=== PATIENT | male | born 1970 | race Caucasian/White ===

== ENCOUNTER 2019-05-15 10:12 | Inpatient (IN) ==
--- NOTE | 2019-05-15 10:45 | EKG Report ---
Test Performed on : 05/15/2019 10:24:33 AM Test Reason : chest pain Blood Pressure : / mmHG Vent. Rate : 075 BPM Atrial Rate : 075 BPM P-R Int : 152 ms QRS Dur : 076 ms QT Int : 362 ms P-R-T Axes : 043 058 056 degrees QTc Int : 404 ms Normal sinus rhythm. Cannot rule out Anterior infarct , age undetermined Abnormal ECG When compared with ECG of 03-DEC-2018 14:13, No significant change was found Unconfirmed Result
[2019-05-15 10:47] LABS: BASO# 0.08 X1000 (0.0-0.2); BASO% 0.9 % (0.0-0.8); EOS# 0.37 X1000 (0.0-0.7); EOS% 4.2 % (0.0-10.0); HEMOGLOBIN 14.5 g/dL (14.0-18.0); LYMPH% 30.3 % (20.5-51.1); MCH 31.5 PG (27-31); MCHC 34.5 g/dL (33-37); MCV 91.1 FL (81-99); MONO# 1.06 X1000 (0.11-0.59); MONO% 11.9 % (1.7-9.3); MPV 10.5 FL (7.4-10.4); NEUT% 52.7 % (42.2-75.2); PLT 250 X1000 (130-400); RBC 4.61 XMIL (4.7-6.1); RDW 12.7 % (11.5-14.5); WBC 8.91 X1000 (4.8-10.8)
--- NOTE | 2019-05-15 10:47 | Diag Imaging Result Doc PS360 ---
CHEST-2 VIEWS - 05/15/2019 INDICATION: chest pain COMPARISON: 12/03/2018 FINDINGS: The lungs are normally expanded and clear. Heart size and mediastinal contours are normal. No pneumothorax or pleural effusion. IMPRESSION: Negative exam. Electronically signed by Bhavesh Calderon 05/15/2019 10:44 AM
[2019-05-15 10:51] LABS: INR 0.85; PROTIME 11.7 Seconds (11.0-16.0); PTT 27.7 Seconds (22.3-41.8)
[2019-05-15 11:28] LABS: AGAP 11; ALB/GLOB RATIO 1.8; ALBUMIN 4.5 g/dL (3.5-5.0); ALKALINE PHOSPHATASE 102 U/L (32-122); BUN 13 mg/dL (8-22); CALCIUM 9.1 mg/dL (8.8-10.2); CHLORIDE 103 mmol/L (98-107); CK PROFILE 94 U/L (24-204); COSMO 282; CREATININE 0.8 mg/dL (0.7-1.2); ESTIMATED GFR > 60; GLUCOSE 114 mg/dL (70-104); GOT 20 U/L (10-34); GPT 24 U/L (10-44); POTASSIUM 4.5 mmol/L (3.5-5.1); SODIUM 141 mmol/L (136-145); TCO2 27 mmol/L (25-35)
[2019-05-15] MEDS ORDERED: NITROGLYCERIN TOP ONE (16:51)
[2019-05-15] MEDS ORDERED: MOTRIN PO PRN (18:41)
[2019-05-15] MEDS ORDERED: NICODERM PATCH TD ONE (18:45)
[2019-05-15] MEDS ORDERED: ZOFRAN IV PRN (18:49)
[2019-05-15] MEDS ORDERED: LABETALOL IV ONE (18:51)
[2019-05-15] MEDS: LOPRESSOR PO SCH (19:00)
--- NOTE | 2019-05-15 19:10 | HISTORY AND PHYSICAL ---
HISTORY OF PRESENT ILLNESS: Mr. Víctor Bauer states that for the last couple days he feels like he has had a little worse swelling especially in his right foot. He feels like he has had a little more chest pain and some shortness of breath and was concerned about it. He came into the emergency room. He has a history of having myocardial infarction, I believe in 2014, and they found he said 4 vessel or 4 lesions, 4-vessel disease. I think they put stents in 2 of them by his report. He has a history of hypertension. He does not really follow up with his doctor. I am not sure if he is taking his medication. He is on Suboxone. He is been without alcohol or drugs for 120 days. Robert was there with him. So, in December of 2014, he had a myocardial infarction with subsequent stent placement in [place]. He did return on 06/03/2015 with concerns about recurrent chest pain. 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 ALLERGIES: No known drug allergies. FAMILY HISTORY: Notable for heart disease and diabetes in first-degree relatives. SOCIAL HISTORY: Smokes 1-1/2 pack cigarettes. He has quit alcohol. ALLERGIES: Ketoralac or Toradol. He breaks out in welts. That is the only thing that he knows of. REVIEW OF SYSTEMS: General: No weight gain or loss. No fever or chills. HEENT: Unremarkable. Respiratory: No increased work of breathing or dyspnea. Cardiovascular: No chest pain or tachy palpitation. Vital signs: He is afebrile. PHYSICAL EXAMINATION: GENERAL: Awake, alert, oriented x3. VITAL SIGNS: Temp 97.9 degrees, pulse 80, respirations 15, blood pressure 152/85. HEENT: Pupils are equal and round. Oral and nasal mucosa unremarkable. No lesions. Conjunctivae pink. Sclerae clear. LUNGS: Are clear in all lung savage anterior and posterior. CARDIOVASCULAR: Regular rhythm and rate without murmur or S3. Weight 270 pounds. Height 6 feet. NECK: Supple. No distended neck veins. CVP less than 6 cm in the right atrium. No thyromegaly. No adenopathy. ABDOMEN: Soft. SKIN: Warm and dry. No chest wall discomfort elicited. His skin without rashes. He has a large callus in the center of his right hand. LABORATORY DATA: White count is 8910, hematocrit is 42, platelet count 250,000. Sodium 141, potassium 4.5, chloride 103, BUN 13, creatinine 0.8, blood sugars 114. AST is 20, ALT is 24, alkaline phosphatase is 102. ProTime is 11.7, INR is 0.85, PTT is 27. His chest x-ray is negative. No sign of infiltrate. Mediastinum unremarkable. I have to look at his EKG. ASSESSMENT AND PLAN: 1. Chest pain in someone who has had a history of coronary artery disease. It does not sound classic or typical for angina, but I think we are going to have to evaluate. He came in in 2016 and at that time they did a heart catheterization and the summary was he had mild-to- moderate coronary artery disease involving the diagonal branch of the left anterior descending, also the mid section of the left anterior descending at the junction of the mid with the apical portion in order about 50 to 60 percent. 2. Patent stent to the right coronary artery. 3. Mild diffuse disease in the right coronary artery proper and within the diagonal branch of the left anterior descending. 4. Normal left ventricular systolic function. 5. Normal left ventricular end-diastolic pressure. No mitral regurgitation. PLAN: 1. So, we will ask Cardiology to evaluate. We are going to check serial cardiac enzymes, troponin and CK. We will check serial electrocardiograms. 2. Blood pressure running high. His afterload is pretty high and so at home, I do not think he is taking his medicines, but he is just taking Suboxone, so we are going to put him on lisinopril 10 mg twice a day and I think we will also put him on Lopressor 25 mg p.o. q.8. We will keep him on his Suboxone while he is here. He gets an 8-2 tablet and he takes it by mouth 3 times a day. We better check his T4, TSH, B12, and folate. We will check a venous Doppler of his right leg that is where his concern is with the swelling. cc: Matthew Castillo MD
[2019-05-15 19:54] LABS: FREE T4 0.99 ng/dL (0.93-1.70)
[2019-05-15] MEDS ORDERED: ATARAX PO SCH (21:00)
[2019-05-15] MEDS: ASPIRIN PO ONE ×2 (21:37→22:50)
[2019-05-15] MEDS ORDERED: ASPIRIN ONE (21:41)
[2019-05-15] MEDS: MELATONIN PO SCH (22:01)
[2019-05-15] MEDS: PRINIVIL PO SCH (22:01)
[2019-05-15] MEDS: SUBOXONE 8 MG/2 MG SL SCH (22:02)
[2019-05-15] MEDS: LOVENOX SUBQ SCH (22:03)
[2019-05-15] MEDS: ATARAX PO SCH (22:13)
[2019-05-15] MEDS ORDERED: ASPIRIN PO ONE (22:45)
[2019-05-16] MEDS: LOPRESSOR PO SCH ×3 (02:31→17:40)
[2019-05-16 05:23] LABS: HEMATOCRIT 40.4 % (42.0-52.0); HEMOGLOBIN 13.8 g/dL (14.0-18.0); MCH 31.3 PG (27-31); MCHC 34.2 g/dL (33-37); MCV 91.6 FL (81-99); MPV 10.5 FL (7.4-10.4); RBC 4.41 XMIL (4.7-6.1); RDW 12.7 % (11.5-14.5); WBC 6.85 X1000 (4.8-10.8)
[2019-05-16 05:45] LABS: AGAP 9; BUN 14 mg/dL (8-22); CALCIUM 8.7 mg/dL (8.8-10.2); CHLORIDE 102 mmol/L (98-107); COSMO 278; CREATININE 0.8 mg/dL (0.7-1.2); ESTIMATED GFR > 60; GLUCOSE 124 mg/dL (70-104); SODIUM 138 mmol/L (136-145); TCO2 27 mmol/L (25-35)
[2019-05-16] MEDS: SUBOXONE 8 MG/2 MG SL SCH ×2 (08:58→21:59)
[2019-05-16] MEDS: NICODERM PATCH TD SCH (08:58)
[2019-05-16] MEDS: PRINIVIL PO SCH ×2 (08:59→21:55)
--- NOTE | 2019-05-16 11:09 | PROGRESS NOTE ---
DATE: 05/16/2019 SUBJECTIVE: Patient reports no chest pain but complaining of shortness of breath. Denies any other complaints. OBJECTIVE: Vital Signs: Temperature 97.7 degrees, heart rate 68, respiratory rate 17, blood pressure 117/57, O2 saturation 100% on room air. General: This is 48-year-old male, lying in bed, in no acute distress. Cardiovascular: S1, S2 heard. No murmurs, gallops, or rubs. Regular rate and rhythm. Respiratory: Wheezing all over both pulmonary bases. Patient not using any accessory muscles or having work of breathing. Abdomen: Soft, nontender to palpation. Bowel sounds present. No organomegaly. Extremities: No clubbing, cyanosis, or edema. Peripheral pulses present in both legs. Neurological: Patient alert, oriented x3. Moves 4 extremities. LABORATORY DATA: We have checked troponins 3 times those are negative. ASSESSMENT AND PLAN: 1. Chest pain. The patient with coronary artery disease with 2 stents placed. The patient has history of myocardial infarction in 2015. He has a history apparently of 4 vessel disease but because of lack of insurance, he has not had any more followup. So at this point, even though we have negative troponins we are going to do Lexiscan and echocardiogram. We have called cardiology for consult. We will see what they think. 2. Chronic obstructive pulmonary disease exacerbation. The patient continues to smoke. Patient advised to quit smoking. We will provide DuoNeb every 4 hours as scheduled. 3. Hypertension. Blood pressure is under control with the same management. DISPOSITION: Following lead from Cardiology. cc: Skip Thacker MD MTDD
[2019-05-16] MEDS: DUONEB (A & A) INH SCH ×4 (11:21→23:43)
[2019-05-16] MEDS ORDERED: LEXISCAN ONE (12:43)
--- NOTE | 2019-05-16 15:09 | CARDIOLOGY CONSULTATION ---
DATE: 05/16/2019 CHIEF COMPLAINT ON PRESENTATION: Chest pain, edema. HISTORY OF PRESENT ILLNESS: Mr. Bauer is a 48-year-old male with a history of coronary disease who has not been compliant with medications, he continues to smoke. Over the last month he has had stabbing-type chest pains in the midchest area that occur every couple days or so, last for a few seconds. There does not appear to be any reliable component with exertion. He reports continued edema developing over that time. Denies any orthopnea. 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 PAST MEDICAL HISTORY: 1. Significant for coronary disease. His last cardiac catheterization was performed in May 2015. At that time he had a normal left main. The LAD had diffuse proximal 40 to 50 percent disease as well as 50 to 60 percent distal disease. Circumflex appears relatively normal. The right coronary is dominant, diffuse disease on the order of 30% in the proximal vessel. Patent stent in the right coronary, ejection fraction on that study was 60%. 2. Hypertension. 3. Hyperlipidemia. 4. Noncompliance with medications. 5. Polysubstance abuse. SOCIAL HISTORY: He has a history of what sounds like opioid use in the past as well as heavy alcohol. He reports not using any of those and maintained Suboxone usage. He continues to smoke 1-1/2 packs per day. He is . FAMILY HISTORY: Significant for hypertension. REVIEW OF SYSTEMS: A 10 system review of systems is negative except for those things mentioned in HPI. PHYSICAL EXAMINATION: He is afebrile. His heart rate is 59, his blood pressure is 117/57.General: He is in no acute distress. HEENT: Oropharynx is moist. Normal dentition. Eye examination shows pink conjunctivae, white sclerae. Neck: Shows no obvious thyromegaly or thyroid tenderness. Cardiovascular: He sounds to be in a regular rate and rhythm. He has no obvious murmurs. He has no S3. He has no lower extremity edema. Chest: Has mild end- expiratory wheezes somewhat diffusely. He has no increased work of breathing. Abdomen: Soft, nontender, nondistended. He has no obvious organomegaly. Skin: Warm and dry throughout without any rashes. Neurological: Moving all extremities well. He has no lateralizing deficits. Psychiatric: He is alert, oriented, pleasant. He has normal mood and affect. PERTINENT DATA: His chest x-ray was unremarkable. His EKG shows sinus rhythm with no ischemic changes. His lab data shows a white count of 6.8, hematocrit 40, platelet count is 226,000. His sodium is 138, potassium 4, BUN 14, creatinine 0.8. His cardiac enzymes have been negative times multiple sets. ASSESSMENT: Mr. Bauer is a 48-year-old gentleman who presents with atypical chest pain and edema. PLAN: At this point his antihypertensives and antihyperlipidemics have been reinitiated. We will follow up on the results of the stress. If this is unremarkable, I believe he can likely be discharged home. cc: Adeel Fuentes MD
[2019-05-16] MEDS ORDERED: SUBOXONE 8 MG/2 MG SL ONE (15:53)
--- NOTE | 2019-05-16 17:29 | ECHO REPORT ---
ORDER DATE: 05/16/2019 MEASUREMENTS: Septal thickness 1.3, left ventricular internal diameter end-diastole 4.8, left ventricular internal diameter end-systole 3.3, posterior wall thickness 1.3, aortic root 2.7, left atrium 4.3. SUMMARY: 1. Technically difficult study due to limited acoustic window quality. 2. Aortic valve without evidence of structural abnormality and opens adequately on 2-dimensional images. The peak gradient across aortic valve is less than 10 mmHg. Mitral and tricuspid valves are without evidence of structural abnormality while pulmonic valve is not well demonstrated. The aortic root is normal in size. 3. Normal left ventricular chamber size with mild concentric left hypertrophy is demonstrated. The estimated left ventricular ejection fraction appears to be at least 60%. No regional wall motion abnormalities evident. Left atrium is mildly enlarged. The right atrium and right ventricle are normal size with grossly preserved right ventricular systolic function. 4. No pericardial effusion. 5. Appearance of inferior vena cava suggests normal central venous pressure. CONCLUSIONS: 1. Technically difficult study. 2. No significant valvular abnormality evident. 3. Mild concentric left hypertrophy with normal left ventricular ejection fraction. 4. Mild left atrial enlargement. cc: MD Lucero Zee CRNP
--- NOTE | 2019-05-16 17:37 | Diag Imaging Result Document ---
PROCEDURE NAME: MYOCARDIAL PERF SCAN, STR/REST - 05/16/2019 SUMMARY: The patient was administered 15.7 millicuries of technetium-99m sestamibi after which resting cardiac images were obtained. The patient was subsequently stressed using a walking Lexiscan protocol. The patient administered Lexiscan 0.4 mg intravenously after which the heart rate went from 62 beats per minute to 88 beats per minute and the blood pressure went from 139/73 to 122/65. With Lexiscan, the patient denied chest discomfort. Following the administration of Lexiscan, the patient was administered 46.2 mCi of technetium 99-m sestamibi after which gated stress cardiac images were obtained. Baseline ECG demonstrated normal sinus rhythm and abnormal precordial R-wave progression, cannot exclude previous anteroseptal infarct of undetermined age. With Lexiscan, there were no diagnostic ST-segment changes. SPECT images were reconstructed in the short, horizontal long, and vertical long axis. Review of these images demonstrated a medium to large-sized area of severely reduced activity in the inferior wall on stress images which partially improves but does not normalize on resting images. Gated images demonstrate a calculated left ejection fraction of 62% with symmetrical wall motion/thickening. CONCLUSIONS: 1. Adequate response to Lexiscan. 2. Clinically negative for chest pain. 3. Electrocardiographically, there were no diagnostic ST-segment changes on ECG following administration of Lexiscan. 4. Abnormal Lexiscan sestamibi images demonstrating partially reversible defect in the inferior wall suggesting inducible myocardial ischemia in the inferior wall. Normal left ventricular systolic function demonstrated. Clinical correlation recommended. cc: MD Skip Zee MD
[2019-05-16] MEDS: LOVENOX SUBQ SCH (19:12)
[2019-05-16] MEDS: ATARAX PO SCH (21:55)
[2019-05-16] MEDS: MELATONIN PO SCH (21:55)
[2019-05-16] MEDS: LIPITOR PO SCH (21:59)
[2019-05-17] MEDS: LOPRESSOR PO SCH ×4 (00:11→20:46)
[2019-05-17] MEDS: DUONEB (A & A) INH SCH ×6 (04:13→23:29)
[2019-05-17] MEDS ORDERED: LASIX IV SCH (09:00)
[2019-05-17] MEDS: NICODERM PATCH TD SCH (09:57)
[2019-05-17] MEDS: PRINIVIL PO SCH ×2 (09:57→20:46)
[2019-05-17] MEDS: ASPIRIN PO SCH (09:57)
[2019-05-17] MEDS: SUBOXONE 8 MG/2 MG SL SCH ×3 (09:58→18:46)
--- NOTE | 2019-05-17 10:48 | PROGRESS NOTE ---
DATE: 05/17/2019 SUBJECTIVE: The patient reports no more episodes of chest pain or shortness of breath. No other complaints noted, except bilateral lower extremity edema. OBJECTIVE: Vital Signs: Temperature 97.9 degrees, heart rate 66, respiratory rate 14, blood pressure 113/62, O2 saturation 98% on room air. General: This is a 48-year-old, male, lying in bed in no acute distress. Cardiovascular: S1, S2 heard. No murmurs, gallops, or rubs. Regular rate and rhythm. Respiratory: Minimal wheezing noted in both pulmonary bases. The patient is not using any accessory muscles or having work of breathing. Abdomen: Soft, nontender to palpation. Bowel sounds present. No organomegaly. Extremities: No clubbing, cyanosis, or edema. Peripheral pulses present in both legs. Neurological: The patient is alert and oriented x3. Moves all 4 extremities. LABORATORY DATA: Reviewed. ASSESSMENT AND PLAN: 1. Chest pain in a patient with coronary artery disease. Lexiscan stress reviewed by Cardiology. Recommendation from them, according to the results of the test, is to start medical therapy. Apparently since he had a myocardial infarction in 2014, he was not taking probably any medication because of lack of insurance. At this point, will plan to keep this patient in the hospital, with current medications recommended by Cardiology, and if he feels better, he will be discharged tomorrow with a followup with biostatistician in a month. 2. Chronic obstructive pulmonary disease exacerbation. The patient is an active smoker. He has been advised to quit smoking. Will continue with DuoNeb. Actually, physical examination disclosed less wheezing today. Will continue to monitor. 3. Hypertension. Blood pressure is under control. Will continue with the same management. 4. Disposition. Will continue to monitor this patient for today, and if tomorrow he is feeling better, will discharge him. cc: Skip Thacker MD
[2019-05-17] MEDS ORDERED: LASIX IV ONE (13:31)
[2019-05-17] MEDS: LOVENOX SUBQ SCH (18:42)
[2019-05-17] MEDS: LIPITOR PO SCH (20:46)
[2019-05-17] MEDS: ATARAX PO SCH (20:46)
[2019-05-17] MEDS: MELATONIN PO SCH (20:46)
--- NOTE | 2019-05-17 21:10 | CARDIOLOGY PROGRESS NOTE ---
DATE: 05/17/2019 SUBJECTIVE: Mr. Bauer has not had any more chest pain. His edema has improved. OBJECTIVE: Vital Signs: He is afebrile. Heart rate 70, blood pressure 139/70. His I's and O's are poorly tracked. He has a number of continent voids not measured. Cardiovascular: He is in a regular rate and rhythm. He has no obvious murmurs. He has trace bilateral lower extremity edema. Chest: Clear bilaterally. He has no increased work of breathing. Abdomen: Soft, nontender. PERTINENT DATA: His echo was reviewed. Nuclear scan results were reviewed. His BUN and creatinine are 14 and 0.8. ASSESSMENT: Mr. Bauer is a 48-year-old gentleman who presented with atypical chest pain. He has a history of myocardial infarction in the past. PLAN: His nuclear scan was reviewed and demonstrated a predominantly fixed defect in the inferior wall. There was some small amount of reversibility. He has markedly atypical symptoms with negative cardiac enzymes and an unremarkable EKG. His echocardiogram showed a preserved ejection fraction in the inferior wall. At this point, I would recommend reinstitution of his medical therapy in the form of KASSI inhibitors and beta-blockers. He was placed on high-intensity statin therapy as well as an aspirin. He was instructed to quit smoking as well as reduce his sodium intake. At this point, I would recommend continued medical therapy and followup as an outpatient. I will start him on Lasix 20 mg daily, which he can continue at home on a p.r.n. basis. His ejection fraction is normal. cc: Adeel Fuentes MD
[2019-05-18] MEDS: DUONEB (A & A) INH SCH ×3 (04:50→11:15)
[2019-05-18] MEDS ORDERED: LASIX PO SCH (09:00)
[2019-05-18] MEDS: NICODERM PATCH TD SCH (09:29)
[2019-05-18] MEDS: SUBOXONE 8 MG/2 MG SL SCH ×2 (09:29→12:45)
[2019-05-18] MEDS: LOPRESSOR PO SCH (09:29)
[2019-05-18] MEDS: PRINIVIL PO SCH (09:29)
[2019-05-18] MEDS: ASPIRIN PO SCH (09:29)
[2019-05-18 11:50] VITALS: BP 154/95
--- NOTE | 2019-05-19 02:28 | Extremity Venous Study ---
PROCEDURE NAME: Venous U/S Bilateral Legs - 05/15/2019 REFERRING PROVIDER: COTY Zafar INTERPRETING PHYSICIAN: Dr. Db Palacios. FARROWING MANAGER: Iain. INDICATION: The patient has edema in the legs. FINDINGS: Bilateral lower extremity venous images accomplished. The common femoral, superficial femoral, deep femoral, popliteal, posterior tibial, peroneal, and greater saphenous are imaged bilaterally. Doppler is used to evaluate the veins for spontaneity, phasicity, respiratory excursion, distal augmentation. All veins are compressible. No intraluminal clot is seen. INTERPRETATION: No evidence of deep or superficial venous thrombosis in either lower extremity veins identified. Reflux noted at the common femoral vein level bilaterally. cc: MD Lucero Kelly CRNP
--- NOTE | 2019-05-19 10:51 | DISCHARGE SUMMARY ---
ADMISSION DATE: 05/15/2019 DISCHARGE DATE: 05/18/2019 DISCHARGE DIAGNOSES: 1. Chest pain resolved. 2. Coronary artery disease with stents. 3. Tobacco abuse. 1. Chronic obstructive pulmonary disease exacerbation improved. 2. Hypertension. CONSULTATIONS: Dr. Adeel Fuentes from Cardiology. PROCEDURES: 1. Myocardial perfusion scan nuclear test showed abnormal Lexiscan sestamibi imaging demonstrating partial reversible defect in the inferior wall suggesting inducible myocardial ischemia in the inferior wall. Normal left ventricular systolic function demonstrated 2. Echocardiogram showed mild concentric left hypertrophy with normal left ventricular ejection fraction of at least 60%. Mild atrial enlargement. No significant valvular abnormality. HOSPITAL COURSE: In brief, this is a 48-year-old male, with past medical history of coronary artery disease with 4 vessel disease who came to the emergency department complaining of chest pain. He had in 2014 acute myocardial infarction and since then he has not had any medical follow-up. He was not taking any medication. Today, he decided to come to the emergency department because of some chest pain so workup, as we mentioned above. Ideally on this patient will be to proceed with left heart catheterization but considering that he has not had any medical therapy, after he was discharged from the hospital for acute MA, I think Cardiology decided to place him on medical treatment and see him in a month in the office. But if he persists with chest pain, he may need to have left heart catheterization. At this point, patient is much more stable. Regarding COPD, he has been placed on DuoNeb every 4 hours and he is improving since then. Blood pressure has been under control, so at this point, he is going to be discharged in stable condition. DISCHARGE PHYSICAL EXAMINATION: Vital Signs: Temperature 98.1 degrees, heart rate 70, respiratory rate 17, blood pressure 154/95. O2 saturation 98% on room air. General: This is a 48-year-old male, lying in bed, in no acute distress. Cardiovascular: S1, S2 heard. No murmurs, gallops, or rubs. Regular rate and rhythm. Respiratory: Clear bilaterally to auscultation. No work of breathing or using accessory muscles. Abdomen: Soft, nontender to palpation. Bowel sounds present. No organomegaly. Extremities: No clubbing, cyanosis, or edema. Peripheral pulses present in both legs. Neurological: The patient alert, oriented x3. Moves 4 extremities. DISCHARGE DISPOSITION: Home to self-care. LIST OF MEDICATIONS: 1. Melatonin 5 mg 1 tablet p.o. at bedtime. 2. Aspirin 81 mg 1 tablet p.o. daily. 3. Lasix 20 mg 1 tablet p.o. daily. 4. Metoprolol 25 mg p.o. twice daily. 5. Nicotine patch 21 mg subcutaneous daily. 6. Lipitor 40 mg 1 tablet p.o. daily. 7. Lisinopril 10 mg 1 tablet p.o. twice daily. 8. Suboxone 8 mg/2 mg 1 tablet p.o. 3 times per day. FOLLOW-UP INSTRUCTIONS: Follow up with Dr. Adeel Fuentes in the office in a month. cc: Skip Thacker MD MTDRj
--- NOTE | 2019-05-22 11:07 | PROVIDER DOCUMENTATION ---
This chart was entered by Arelis Javier Scribe, acting as scribe for Jorge L Solo MD. HPI-Chest Pain - General Chief Complaint: Chest Pain Stated Complaint: CP HEART PT Time Seen by Provider: 05/15/19 10:47 Source: patient Allergies/Adverse Reactions: Patient Allergies Allergy/AdvReac Type Severity Reaction Status Date / Time ketorolac tromethamine * Allergy RASH Verified 01/27/18 19:31 [From Toradol] Home Medications: Home Medication List Medication Instructions Recorded Confirmed Last Taken Type Buprenorphine/Naloxone S.l. 1 tab PO TID 05/15/19 05/15/19 Unknown History [Suboxone 8 mg/2 mg] ATORVAstatin [Lipitor] 40 mg PO QHS #90 tab 05/18/19 Unknown Rx Aspirin 81 mg PO DAILY #90 chewtab 05/18/19 Unknown Rx Furosemide [Lasix] 20 mg PO DAILY #90 tab 05/18/19 Unknown Rx LISINOpril [Prinivil] 10 mg PO BID #60 tab 05/18/19 Unknown Rx Melatonin 5 mg PO QHS tab 05/18/19 Unknown Rx Metoprolol [Lopressor] 25 mg PO BID #60 tab 05/18/19 Unknown Rx Nicotine Patch [Nicoderm Patch] 21 mg TD DAILY patch.[id number] 05/18/19 Unknown Rx - History of Present Illness-CP Nature of Presenting Problem: Patient is a 48 year old male who presents for chest pain. States having chest pain for 2 weeks. Reports pain has resolved currently. States pain is similar to prior DE. Does not report shortness of breath or nausea. Reports weight gain and increased swelling to bilateral lower extremities. Location: reports: substernal Chest Pain Radiation: reports: no radiation Quality of Pain: reports: other (pinching) Severity in ED: mild Onset/Duration: other (2 weeks) Timing: gone now Context/Activities at Onset: reports: light activity Prior Chest Pain/Cardiac Workup: reports: heart attack Similar Symptoms Previously?: Yes Recently Seen Here or By Another Healthcare Provider: No Review of Systems - Adult - REVIEW OF SYSTEMS - ADULT Constitutional: reports: see HPI, weight gain. denies: chills, fever Eyes: reports: no symptoms reported Ears, Nose, Mouth & Throat: reports: no symptoms reported Cardiovascular: reports: see HPI. denies: chest pain, palpitations, syncope Respiratory: reports: no symptoms reported. denies: cough, shortness of breath, wheezing Gastrointestinal: reports: no symptoms reported Genitourinary: reports: no symptoms reported Musculoskeletal: reports: no symptoms reported Integumentary: reports: no symptoms reported Neurological: reports: no symptoms reported Psychiatric: reports: no symptoms reported Endocrine: reports: no symptoms reported Hematologic/Lymphatic: reports: no symptoms reported Allergic/Immunologic: reports: no symptoms reported All Other Systems: Reviewed and Negative Past History - Adult - PAST MEDICAL HISTORY-ADULT Review of Records: reports: Old Records Reviewed, Nursing Assessment Review, Medications Reviewed, Social history reviewed & non-contributory. Major Childhood Illnesses: reports: denies history Cardiovascular: reports: HTN, hyperlipidemia, DE Respiratory: reports: COPD Gastrointestinal: reports: GERD Obstetrical/Gynecological: reports: denies history Genitourinary: reports: denies history Musculoskeletal: reports: denies history Neurological: reports: denies history Endocrine/Immune: reports: denies history Other Conditions: reports: denies history - PRIOR SURGERIES/PROCEDURES Surgical/Procedure History: reports: cardiac stent - IMMUNIZATION STATUS Childhood Immunizations: See Nurse Assessment Flu Vaccine: See Nurse Assessment - FAMILY HISTORY Family History: reviewed, not pertinent - SOCIAL HISTORY Smoking: cigarettes (former) Substance Use: denies Physical Exam-General - PHYSICAL EXAM-ADULT Initial Vital Signs Reviewed: Yes - CONSTITUTIONAL General Appearance: appears well, alert, no apparent distress - HEAD, EARS, NOSE, MOUTH & THROAT HENMT: moist mucous membranes - NECK Neck: full range of motion, normal inspection - RESPIRATORY Respiratory: chest non-tender, lungs clear, normal breath sounds - CARDIOVASCULAR Cardiovascular: regular rate, rhythm, no gallop, no murmur - GASTROINTESTINAL (ABDOMEN) Abdominal Exam: normal bowel sounds, non tender, soft - MUSCULOSKELETAL Extremity: non-tender, other (trace edema to bilateral lower extremities) - SKIN Integumentary: normal color, normal turgor, warm/dry - NEUROLOGIC Neurologic: grossly normal - PSYCHIATRIC Psych/Mental Status: normal mood/affect, oriented x 3 - HEART Score HEART Score: History: Moderately Suspicious HEART Score: ECG: Non-Specific Repolarization Disturbance/LBBB/PM HEART Score: Age: 45-65 Years HEART Score: Risk Factors for Atherosclerotic Disease: > or = 3 Risk Factors or History of Atherosclerotic Disease HEART Score: Troponin: < or = Normal Limit Total HEART Score:: 5 Progress - PLAN OF CARE/RESULTS Progress/Plan/Lab Results: Orders Category Date Time Status Admit - [facility] Routine AdmDCTranf 05/15/19 18:49 Active Activity - Up with Assistance ORDERED Care 05/15/19 18:49 Active Cardiac Monitoring DIRECTED Care 05/15/19 10:34 Completed Intake and Output-Strict ORDERED Care 05/15/19 18:49 Active Nursing- MD Consult Request ROUTINE Care 05/16/19 08:00 Completed Oxygen Therapy- ED Nursing DIRECTED Care 05/15/19 10:34 Completed Saline Loc NOW Care 05/15/19 10:34 Active Vital Signs Order Q 4-HR ASSESS Care 05/15/19 18:49 Active Z-Document. for Tele Applied ORDERED Care 05/15/19 18:51 Completed Physician/Provider Consults Routine Cons 05/16/19 08:00 Ordered Heart Healthy Diet Diet 05/15/19 18:50 Completed NPO Diet 05/16/19 00:01 Completed CHEST-2 VIEWS [RAD] Stat Exams 05/15/19 10:34 Completed BASIC METABOLIC PANEL [CHEM] Routine Lab 05/16/19 04:52 Completed CBC WITH ELECTRONIC DIFF [HEME] Stat Lab 05/15/19 10:30 Completed CBC WITH NO DIFF [HEME] Routine Lab 05/16/19 04:52 Completed CK PROFILE [SP CHEM] Stat Lab 05/15/19 10:30 Completed CK PROFILE [SP CHEM] Stat Lab 05/15/19 18:44 Completed COMPREHENSIVE METABOLIC PANEL [CHEM] Stat Lab 05/15/19 10:30 Completed FOLATE Routine Lab 05/15/19 18:44 Completed FREE T4 Routine Lab 05/15/19 18:44 Completed PRO B-NATRIURETIC PEPTIDE Stat Lab 05/15/19 10:30 Completed PROTIME WITH INR [COAG] Stat Lab 05/15/19 10:30 Completed PTT [COAG] Stat Lab 05/15/19 10:30 Completed TROPONIN T HIGH SENSITIVITY Stat Lab 05/15/19 10:30 Completed TROPONIN T HIGH SENSITIVITY Stat Lab 05/15/19 13:28 Completed TROPONIN T HIGH SENSITIVITY Stat Lab 05/15/19 18:44 Completed TSH Routine Lab 05/16/19 04:52 Completed VITAMIN B12 Routine Lab 05/15/19 18:44 Completed Aspirin Med 05/15/19 11:16 Discontinued 325 mg PO NOW ONE Buprenorphine/Naloxone S.l. [Suboxone 8 mg/2 mg] Med 05/15/19 21:00 Disconti nued 1 each SL BID Enoxaparin [Lovenox] Med 05/15/19 19:00 Discontinued 40 mg SUBQ Q24H Hydroxyzine [Atarax] Med 05/15/19 21:00 Discontinued 50 mg PO HS Ibuprofen [Motrin] Med 05/15/19 18:41 Discontinued 600 mg PO Q6H PRN PRN LISINOpril [Prinivil] Med 05/15/19 21:00 Discontinued 10 mg PO BID Labetalol Med 05/15/19 18:51 Discontinued 10 mg IV NOW ONE Melatonin Med 05/15/19 21:00 Discontinued 5 mg PO QHS Metoprolol [Lopressor] Med 05/15/19 18:45 Discontinued 25 mg PO Q8H Nicotine Patch [Nicoderm Patch] Med 05/16/19 09:00 Discontinued 21 mg TD DAILY Nicotine Patch [Nicoderm Patch] Med 05/15/19 18:45 Discontinued 21 mg TD NOW ONE Nitroglycerin Med 05/15/19 16:51 Discontinued 1 inch TOP NOW ONE Ondansetron [Zofran] Med 05/15/19 18:49 Discontinued 4 mg IV Q4H PRN PRN CP/SOB/Palp >45 yrs of Age Stat Oth 05/15/19 10:34 Ordered Telemetry [OM.EQ] Routine Oth 05/15/19 18:49 Active EKG [EKG] Stat Ther 05/15/19 10:34 Draft Venous U/S Bilateral Legs Routine Ther 05/15/19 18:42 Completed Transfer/Admit Order [TRANSFER] Routine Transfer 05/15/19 18:52 Completed Result Diagrams: 05/16/19 04:52 05/16/19 04:52 - EKG 1 Time of EKG reading by physician:: 10:24 EKG Read and Signed by:: Jorge L Solo EKG Interpretation (*Must complete 3 of following elements*): Abnormal Rate: 75 Rhythm: NSR [place]: normal [place] Interval: normal Comments: cannot rule out anterior infarct, age undetermined - XRAY 1 XRAY Study: Chest Impression: See EMR Report ( CHEST-2 VIEWS - 05/15/2019 INDICATION: chest pain COMPARISON: 12/03/2018 FINDINGS: The lungs are normally expanded and clear. Heart size and mediastinal contours are normal. No pneumothorax or pleural effusion. IMPRESSION: Negative exam. Electronically signed by Bhavesh Calderon 05/15/2019 10:44 AM [id number] Interpreting Physician: Bhavesh Calderon MD Dictated Date/Time: 05/15/19 1044 cc: Jorge L Solo MD; None,PCP) - CONSULTS/PCP/HOSPITALIST Notification #1 *Consult/PCP/Hospitalist*: Hospitalist paged at [phone] Departure - Departure Date of Disposition Decision: 05/15/19 Time of Disposition Decision: 15:40 DIAGNOSIS: Chest pain, HTN (hypertension) Disposition: ADMITTED INPATIENT 09 Certified Medical Emergency: Emergent Condition: Stable - Critical Care Note This patient required my direct & personal management of CC.: No Attestation - Physician/ BETO Attestation Patient care was provided by Advanced Practice Provider:: No The physician spent face to face time with patient:: Yes Advanced Practice Provider documentation review:: Supervising physician onsite and consulted in the evaluation and care of this patient. The physician did have a face to face encounter with the patient. This chart was documented by the indicated scribe, (Arelis Javier Scribe) and accurately reflects the services I performed and decisions made by me, Willie Solo MD, as attested by the provider's signature.
== END 2019-05-18 13:04 | disposition home or self-care (01) | DRG 313 ==
LOC: ED 10:12 → SUATTDRO 21:17 → 1N 21:17
PROVIDERS: ATTEND Internal Medicine